=== PATIENT | female | born 1990 | race Caucasian/White ===

== ENCOUNTER 2018-01-10 14:18 | Emergency (ER) | payer MEDICAID ==
[~2018-01-10] VITALS: Ht 162.6 cm; Wt 73.6 kg
[2018-01-10 15:12] VITALS: BP 118/74
== END 2018-01-10 15:16 | disposition home or self-care (01) ==
LOC: ED 15:10
DX: K08.89 Other specified disorders of teeth and supporting structures (principal)
CPT/HCPCS: 99283